=== PATIENT | female | born 1995 | race Caucasian/White ===

== ENCOUNTER 2019-10-16 23:37 | Emergency (ER) | payer OTHER ==
[2019-10-16 23:47] VITALS: BP 122/57
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
== END 2019-10-17 02:15 | disposition home or self-care (01) ==
LOC: ED 23:37
DX: S60.222A Contusion of left hand, initial encounter (principal); W03.XXXA Other fall on same level due to collision with another person, initial encounter
CPT/HCPCS: 99282; 99283

== ENCOUNTER 2020-08-24 10:39 | Emergency (ER) | payer OTHER ==
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
[2020-08-24] MEDS ORDERED: MECLIZINE 12.5 MG TABLET PO STA (11:38)
[2020-08-24 11:46] LABS: BILIRUBIN,URINE NEGATIVE (NEGATIVE); GLUCOSE, URINE (UA) NEGATIVE (NEGATIVE); KETONES,URINE (UA) NEGATIVE (NEGATIVE); PH,URINE 7.5 PH (5.0-7.5); PROTEIN,URINE TRACE mg/dL (NEGATIVE); UROBILINOGEN,URINE 1 (NORMAL) E.U./dL (NORMAL)
[2020-08-24 11:48] LABS: CLARITY,URINE CLEAR (CLEAR)
[2020-08-24 11:54] LABS: HCG UR QUAL NEGATIVE
[2020-08-24 12:03] LABS: RBC,URINE 0-5 /HPF (0-5); WBC CLUMPS,URINE PRESENT; WBC,URINE >25 /HPF (0-5)
[2020-08-24 12:04] LABS: BACTERIA,URINE Few /HPF (None Seen); SQUAMOUS EPITHELIAL CELL,UR FEW Squamous (<= Few)
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
[2020-08-24] MEDS ORDERED: cephALEXin 250 MG CAPSULE PO STA (12:25)
[2020-08-24 12:31] VITALS: BP 113/67
== END 2020-08-24 12:46 | disposition home or self-care (01) ==
LOC: EDUNIT# → ED 10:39
DX: R42 Dizziness and giddiness (principal); S06.0X0A Concussion without loss of consciousness, initial encounter; V40.3XXA Unspecified car occupant injured in collision with pedestrian or animal in nontraffic accident, initial encounter; Y92.410 Unspecified street and highway as the place of occurrence of the external cause; N30.00 Acute cystitis without hematuria
CPT/HCPCS: 70450; 81001; 81025; 87077; 87086; 87181; 99283; 99284; A9270; 81003

== ENCOUNTER 2022-03-27 10:05 | Emergency (ER) | payer OTHER ==
[2022-03-27 10:27] VITALS: BP 126/59
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
[2022-03-27 15:10] LABS: BASOPHILS % (AUTO) 0.5 %; EOSINOPHILS % (AUTO) 0.7 %; HCT - HEMATOCRIT 40.7 % (37.0-47.0); HGB - HEMOGLOBIN 13.9 g/dL (12.0-16.0); LYMPHOCYTES # (AUTO) 2.4 10^3/uL (1.5-3.5); LYMPHOCYTES % (AUTO) 41.3 %; MEAN CORPUSCULAR HEMOGLOBIN 30.5 pg (27.0-31.0); MEAN CORPUSCULAR HGB CONC 34.2 g/dL (32.0-36.0); MEAN CORPUSCULAR VOLUME 89.5 fL (81.0-99.0); MEAN PLATELET VOLUME 9.9 fL (7.9-10.8); MONOCYTES # (AUTO) 0.4 10^3/uL (0.0-1.0); MONOCYTES % (AUTO) 7.5 %; NEUTROPHILS # (AUTO) 2.8 10^3/uL (1.5-6.6); NEUTROPHILS % (AUTO) 49.6 %; PLT - PLATELET COUNT 310 10^3/uL (130-450); RED BLOOD COUNT 4.55 10^6/uL (4.20-5.40); RED CELL DISTRIBUTION WIDTH 11.9 % (12.0-15.0); WHITE BLOOD COUNT 5.7 x10^3/uL (4.8-10.8)
[2022-03-27 15:14] LABS: CALCIUM 10.1 mg/dL (8.5-10.3); CREATININE 0.7 mg/dL (0.4-1.0); POTASSIUM 3.6 mmol/L (3.5-5.0)
[2022-03-27] MEDS ORDERED: iohexoL-300 100 ML VIAL ONE (15:51)
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
[2022-03-27] MEDS ORDERED: iohexoL-300 100 ML VIAL IVP ONE (17:53)
== END 2022-03-27 17:34 | disposition home or self-care (01) ==
LOC: ED 10:05
DX: H53.8 Other visual disturbances (principal); R51.9 Headache, unspecified
CPT/HCPCS: 36415; 70496; 70498; 80048; 85025; 99282; 99284; Q9967

== ENCOUNTER 2022-04-08 23:39 | Emergency (ER) | payer OTHER ==
[2022-04-08 23:44] VITALS: BP 104/82
--- NOTE | 2022-04-09 02:21 | ED Physician Documentation ---
PD HPI LOWER EXT INJURY - Stated complaint Stated Complaint: L KNEE INJ - Chief complaint Chief Complaint: Ext Problem - History obtained from History obtained from: Patient - History of Present Illness PD HPI LOW EXT INJURY LOCATION: Left, Knee Type of injury: Fall Where injury occurred: Other (snowboarding ([place] Timing - onset: Enter time (18:00) Timing - details: Abrupt onset Pain level now: 4 Improved by: Rest Worsened by: Moving, Palpating Associated symptoms: Swelling. No: Weakness, Numbness, Tingling Contributing factors: No: Anticoagulated, Prior ortho surgery, Prosthetic joint Recently seen: Not recently seen - Additional information Additional information: patient was snowboard today at approximately 6 PM when her left knee twisted, causing sudden left knee pain. She has since had difficulty bearing full weight on the LLE since the injury. Review of Systems Cardiac: denies: Chest pain / pressure Respiratory: denies: Dyspnea Musculoskeletal: reports: Joint pain (left knee), Joint swelling (left knee). denies: Neck pain, Back pain, Extremity pain Neurologic: denies: Focal weakness, Numbness, Headache, Head injury PD PAST MEDICAL HISTORY - Past Medical History Cardiovascular: None Respiratory: None Neuro: None Endocrine/Autoimmune: None GI: None INTERNAL SALESPERSON: None : None HEENT: None Psych: None Musculoskeletal: None Derm: None - Past Surgical History Past Surgical History: No - Present Medications Home Medications: Ambulatory Orders Medication Instructions Recorded Confirmed Meclizine HCl [Antivert] 1 tablet PO Q6H PRN #30 tab 08/24/20 cephALEXin [Keflex] 500 mg PO TID 5 Days #15 cap 08/24/20 - Allergies Allergies/Adverse Reactions: Allergies Allergy/AdvReac Type Severity Reaction Status Date / Time No Known Drug Allergies Allergy Verified 04/08/22 23:44 - Social History Does the pt smoke?: No Smoking Status: Never smoker Does the pt drink ETOH?: Yes Does the pt have substance abuse?: No - Immunizations Immunizations are current?: Yes - POLST Patient has POLST: No PD ED PE NORMAL - Vitals Vital signs reviewed: Yes - General General: Alert and oriented X 3, No acute distress, Well developed/nourished - Extremities Extremities: No deformity, Other (significant generalized swelling/edema of right aknle. ) - Neuro Neuro: No motor deficit, No sensory deficit PD ED PE EXPANDED - Extremities Extremities: Other (LEFT KNEE: no direct patellar tenderness, unable to flex knee to 90 degrees due to pain, no tenderness at head of fibula. ) Results - Vitals Vitals: Oxygen O2 Source Room air - Rads (name of study) left knee xrays Radiology: Prelim report reviewed, EMP read indepedently PD Medical Decision Making - ED course Complexity details: reviewed results, re-evaluated patient, considered differential, d/w patient ED course: No fracture, dislocation on plain-film xrays left knee. There is significant swelling of the left knee on exam; she will require close follow up for this injury. Provided crutches so that she can minimize weight-bearing. Knee immobilizer also put in place. Results d/w patient, follow up recommended for reevaluation and further study if necessary Departure - Departure Disposition: 01 Home, Self Care Clinical Impression: Left knee sprain Condition: Good Instructions: ED Crutch Walking, ED Immobilizer Knee, ED Sprain Knee Follow-Up: PENNY GUERRERO [Primary Care Provider] - Comments: The x-rays do not show any dislocation nor fracture. The x-rays do show what is obvious on the exam, which is a significant amount of swelling. Minimize weightbearing by using the crutches. Keep the knee immobilizer in place until you follow-up with your primary care provider. Contact your primary care provider on Sunday to arrange for next available appointment. Ideally, you should be reevaluated within one week. Discharge Date/Time: 04/09/22 04:05
--- NOTE | 2022-04-09 08:23 | XRAY Report ---
PROCEDURE: Knee 4 View LT INDICATIONS: Trauma TECHNIQUE: 5 views of the left knee(s) were acquired. COMPARISON: None. FINDINGS: Bones: No fractures or dislocations. No suspicious bony lesions. Soft tissues: There is a moderate to large joint effusion. No suspicious soft tissue calcifications . IMPRESSION: Moderate to large joint effusion. No acute bony abnormality is seen. If it would be helpful for clinical management decision making, please consider a dedicated, schedule d knee MRI for further evaluation (assuming that there is no contraindication). Note: No significant discrepancy from the preliminary report. Reviewed by: Prabhu Haas MD on 04/09/2022 7:21 AM [facility] Approved by: Prabhu Haas MD on 04/09/2022 7:21 AM [facility] Station ID: [id number]
== END 2022-04-09 04:05 | disposition home or self-care (01) ==
LOC: ED 23:39
DX: S83.92XA Sprain of unspecified site of left knee, initial encounter (principal); X50.1XXA Overexertion from prolonged static or awkward postures, initial encounter; Y93.23 Activity, snow (alpine) (downhill) skiing, snowboarding, sledding, tobogganing and snow tubing; Y92.828 Other wilderness area as the place of occurrence of the external cause
CPT/HCPCS: 99282; 99283

== ENCOUNTER 2022-04-11 07:15 | Outpatient (CLI) | payer OTHER ==
--- NOTE | 2022-04-11 08:27 | MRI Report ---
PROCEDURE: BRAIN WO INDICATIONS: MIGRAINE TECHNIQUE: Noncontrast axial T1 spin echo, axial T2 fast spin echo, sagittal and axial FLAIR, coronal T2 fast sp in echo, axial gradient echo, axial diffusion and ADC through the brain. COMPARISON: None. FINDINGS: Image quality: Excellent. CSF Spaces: Basal cisterns are patent. No extra-axial fluid collections. Ventricles are normal in size and shape. Brain: No intracranial masses or hemorrhage. Henley/white matter interface is normal. Brainstem appe ars normal. Diffusion-weighted images demonstrate no acute ischemic insult. No chronic ischemic ins ults. Normal intravascular flow voids are present. Skull and face: Calvarium has normal marrow signal. Orbits appear normal. Sinuses: Sinuses and mastoids are clear. IMPRESSION: Normal MRI of the brain. Reviewed by: Alex Stern MD on 04/11/2022 8:26 AM [facility] Approved by: Alex Stern MD on 04/11/2022 8:26 AM [facility] Station ID: [id number]
== END 2022-04-11 07:16 | disposition home or self-care (01) ==
LOC: DI 07:15
DX: G43.B0 Ophthalmoplegic migraine, not intractable (principal)

== ENCOUNTER 2022-12-27 13:51 | Outpatient (CLI) | payer OTHER ==
--- NOTE | 2022-12-28 13:07 | MRI Report ---
PROCEDURE: KNEE WO - LT INDICATIONS: LEFT KNEE PATELLAR SUBLUXATION TECHNIQUE: Noncontrast sagittal PD fast spin echo and T2 fast spin echo with fat saturation, sagittal 3-D gradie nt sequence with fat saturation; coronal T1 spin echo and PD fast spin echo with fat saturation, and axial PD fast spin echo with fat saturation through the knee. COMPARISON: X-ray left knee, 04/09/2022. FINDINGS: Image quality: Excellent. Menisci: There is lateral meniscal extrusion. The medial and lateral menisci demonstrate normal morph ology and internal signal. The meniscal root ligaments appear intact. Cruciate ligaments: The anterior and posterior cruciate ligaments appear intact. Medial structures: The medial collateral ligament appears intact. The semimembranosus tendon insert ions and meniscocapsular junction appear intact. Visualized portions of the pes anserinus tendons ap pear normal. No abnormal bursal fluid. Lateral structures: The lateral collateral ligament, long and short heads of the biceps femoris tend on appear intact. The popliteus tendon appears normal. Iliotibial band appears normal. Anterior structures: Insall-Salvati index TL/PL = 1.33. There is lateral tilt of the patella. There i s mild focal bone edema in the medial facet of patella and edema in the adjacent medial patellar reti naculum. Mild bony edema is also seen in the lateral femoral condyle. The findings are compatible wit h transient lateral patellar dislocation. No femoral trochlear dysplasia or ventral trochlear promin ence. The quadriceps and patellar tendons appear intact. No edema in the infrapatellar fat pad. Bones and cartilage: No bone marrow contusions or fractures. Focal cartilage thinning with associate d cortical irregularity and subchondral edema in the peripheral aspect of the lateral femoral condyle , suspicious for sequelae of osteochondral injury. Joint space: There is physiologic knee joint fluid. Trace Huertas's cyst. Normal appearing synovial plicae are incidentally noted. IMPRESSION: 1. Transient patellar dislocation. 2. Lateral meniscal extrusion. No meniscal tear. 3. Suspect osteochondral injury of the lateral femoral condyle. Reviewed by: Cole Watkins MD on 12/28/2022 1:06 PM PDT Approved by: Cole Watkins MD on 12/28/2022 1:06 PM PDT Station ID: [id number]
== END 2022-12-27 13:52 | disposition home or self-care (01) ==
LOC: DI 13:51
DX: S83.005A Unspecified dislocation of left patella, initial encounter (principal); M23.301 Other meniscus derangements, unspecified lateral meniscus, left knee